=== PATIENT | female | born 1950 | race Caucasian/White ===

== ENCOUNTER → 2021-07-22 | Day surgery (SDC) | payer MEDICARE ==
[~2021-07-22] MED LIST: Lidocaine 1% PF 5 ML VIAL ONE; Sodium Bicarbonate 2.5 MEQ/5 ML VIAL ONE
[2021-07-22 09:06] VITALS: BP 147/70; TEMP 98.2
== END ==
LOC: CSHULT 08:44
PROVIDERS: ATTEND Internal Medicine Hematology & Oncology
DX: R18.8 Other ascites (principal); C25.0 Malignant neoplasm of head of pancreas
CPT/HCPCS: 49083

== ENCOUNTER 2021-08-06 12:31 | Outpatient (CLI) | payer MEDICARE ==
[2021-08-06] MEDS ORDERED: Lidocaine 1% PF 5 ML VIAL ONE (14:13)
[2021-08-06] MEDS ORDERED: Sodium Bicarbonate 2.5 MEQ/5 ML VIAL ONE (14:13)
== END 2021-08-06 15:09 | disposition home or self-care (01) ==
LOC: CSHCT 12:31
PROVIDERS: ATTEND Internal Medicine Hematology & Oncology
DX: C25.0 Malignant neoplasm of head of pancreas (principal); Z03.89 Encounter for observation for other suspected diseases and conditions ruled out; R18.8 Other ascites; K76.9 Liver disease, unspecified; Z98.890 Other specified postprocedural states; Z90.81 Acquired absence of spleen; I77.1 Stricture of artery; K66.8 Other specified disorders of peritoneum; K63.9 Disease of intestine, unspecified
CPT/HCPCS: 49083; 74177; 76705; 82565

== ENCOUNTER 2021-10-23 09:30 | Outpatient (CLI) | payer MEDICARE | END 2021-10-23 09:31 | disposition home or self-care (01) | LOC: CSHMRI 09:30 | PROVIDERS: ATTEND Internal Medicine Hepatology | DX: R74.8 Abnormal levels of other serum enzymes (principal); K83.1 Obstruction of bile duct; Z11.59 Encounter for screening for other viral diseases; Z13.9 Encounter for screening, unspecified; K76.0 Fatty (change of) liver, not elsewhere classified; R18.8 Other ascites | CPT/HCPCS: 74183 ==

== ENCOUNTER 2024-04-19 06:18 | Day surgery (SDC) | payer MEDICARE ==
[2024-04-18 15:04] VITALS: BMI 17.2
[2024-04-19] MEDS ORDERED: Acetaminophen 500 MG TAB ONE (07:17)
[2024-04-19] MEDS ORDERED: Ketorolac Tromethamine 30 MG (1 mL) VIAL ONE (07:17)
[2024-04-19 07:43] LABS: Hematocrit 30.4 % (34.9-44.5); Hemoglobin 10.2 g/dL (12.0-15.5); Mean Corpuscular HGB CONC 33.6 g/dL (32.0-36.0); Mean Corpuscular Hemoglobin 32.2 pg (27.0-33.0); Mean Corpuscular Volume 95.9 fL (81.6-98.3); Mean Platelet Volume 11.8 fL (7.4-10.4); Platelet Count 187 10x3/uL (150-450); RBC Distribution Width 16.5 % (11.5-14.5); Red Blood Cell (RBC) Count 3.17 10x6/uL (3.90-5.03); White Blood Cell (WBC) Count 32.43 10x3/uL (3.5-10.5)
[2024-04-19 07:53] LABS: Anion Gap 18 mmol/L (10-20); BUN (Urea Nitrogen) 21 mg/dL (9.8-20.1); Calc. Creatinine Clearance 69 mL/min (70-130); Calcium 9.1 mg/dL (7.8-10.44); Carbon Dioxide 25 mmol/L (23-31); Chloride 100 mmol/L (98-107); Estimated GFR 96; Glucose 153 mg/dL (83-110); Potassium 4.5 mmol/L (3.5-5.1); Sodium 138 mmol/L (136-145)
[2024-04-19 08:12] LABS: Anisocytosis SLIGHT = 6-15 cells (100X) (0-5/hpf); Band 5 % (5-11); Dohle Bodies SLIGHT; Hypochromia SLIGHT = 6-15 cells (100X) (0-5/hpf); Lymphocytes 12 % (21-51); MDiff Complete? YES; Macrocytosis SLIGHT = 6-15 cells (100X) (0-5/hpf); Monocytes 4 % (0-10); Neutrophil 79 % (42-75); Platelet Adequacy Comment Appears Adequate; Polychromasia SLIGHT = 2-3 cells (100X) (0-2/hpf); Target Cells SLIGHT = 2-5 cells (100X) (0-1/hpf); Toxic Granulation SLIGHT
[2024-04-19] MEDS ORDERED: PROPOFOL 20 ML ONE (09:06)
[2024-04-19] MEDS ORDERED: Lidocaine 2% PF 5 ML VIAL ONE (09:06)
[2024-04-19] MEDS ORDERED: Ondansetron PF 4 MG/2 ML Vial ONE (09:09)
[2024-04-19] MEDS ORDERED: CEFAZOLIN 2 GM VIAL ONE (09:12)
[2024-04-19] MEDS ORDERED: Lidocaine 2% MPF 10 ML AMP (For Epidural Use) ONE (09:12)
[2024-04-19] MEDS ORDERED: Bupivacaine/Epinephrine 0.25% 30 ML VIAL ONE (09:12)
[2024-04-19] MEDS ORDERED: Dexamethasone 4 mg/ml Vial ONE (10:04)
[2024-04-19] MEDS ORDERED: PHENYLEPHRINE-NS 100 MCG/ML 10 ML SYRINGE ONE (10:09)
== END 2024-04-19 11:40 | disposition home or self-care (01) ==
LOC: CSHSDC 06:18
PROVIDERS: ATTEND Specialist
PROC: 0JH60WZ Insertion of Totally Implantable Vascular Access Device into Chest Subcutaneous Tissue and Fascia, Open Approach (ICD-10-PCS; principal; 2024-04-19)
DX: C78.89 Secondary malignant neoplasm of other digestive organs (principal); E11.9 Type 2 diabetes mellitus without complications; K21.9 Gastro-esophageal reflux disease without esophagitis; Z79.4 Long term (current) use of insulin; Z79.899 Other long term (current) drug therapy
CPT/HCPCS: 36561; 71045; 80048; 82962; 85025; 93005; C1788; J1100; J1642; J1885; J2405; J2704; 36415; 36416; 93010